=== PATIENT | male | born 1955 | race Caucasian/White ===

== ENCOUNTER 2020-04-28 15:53 | Emergency (ER) | payer BC, MEDICARE ==
[~2020-04-28] VITALS: Ht 172.7 cm; Wt 72.6 kg
[2020-04-28] MEDS ORDERED: NORCO 5-325 TA1 EAC2 PO (17:43)
[2020-04-28 17:54] VITALS: BP 153/91
== END 2020-04-28 17:55 | disposition home or self-care (01) ==
LOC: M.ERS 15:53
DX: M25.551 Pain in right hip (principal); M53.3 Sacrococcygeal disorders, not elsewhere classified; Z90.49 Acquired absence of other specified parts of digestive tract; V89.2XXA Person injured in unspecified motor-vehicle accident, traffic, initial encounter; Y93.89 Activity, other specified; Y92.89 Other specified places as the place of occurrence of the external cause; Y99.8 Other external cause status